=== PATIENT | female | born 1990 | race African-American/Black ===

== ENCOUNTER 2024-01-15 15:01 | Day surgery (SDC) | payer OTHER ==
[2024-01-15] MEDS: Acetaminophen 500 MG TAB PO SCH (16:35)
== END 2024-01-15 17:26 | disposition home or self-care (01) ==
LOC: CSHLD/OP 15:01
PROVIDERS: ATTEND Family Medicine
DX: O47.03 False labor before 37 completed weeks of gestation, third trimester (principal); O26.853 Spotting complicating pregnancy, third trimester; O99.213 Obesity complicating pregnancy, third trimester; O99.513 Diseases of the respiratory system complicating pregnancy, third trimester; J45.909 Unspecified asthma, uncomplicated; O99.283 Endocrine, nutritional and metabolic diseases complicating pregnancy, third trimester; E03.9 Hypothyroidism, unspecified; O34.211 Maternal care for low transverse scar from previous cesarean delivery; O99.013 Anemia complicating pregnancy, third trimester; Z3A.36 36 weeks gestation of pregnancy; Z79.890 Hormone replacement therapy; Z79.899 Other long term (current) drug therapy; Z88.0 Allergy status to penicillin

== ENCOUNTER 2024-02-04 06:55 | Inpatient (IN) | payer OTHER ==
[2024-02-04 08:25] LABS: Syphilis Antibody Nonreactive (Nonreactive); Syphilis Antibody Index 0.05 S/CO (<1.00 Non-Reactive)
[2024-02-04 08:26] LABS: Hemoglobin 10.7 g/dL (12.0-15.5); Mean Corpuscular HGB CONC 33.4 g/dL (32.0-36.0); Mean Corpuscular Hemoglobin 26.4 pg (27.0-33.0); Mean Corpuscular Volume 78.8 fL (81.6-98.3); Mean Platelet Volume 9.9 fL (7.4-10.4); Platelet Count 282 10x3/uL (150-450); RBC Distribution Width 13.4 % (11.5-14.5); Red Blood Cell (RBC) Count 4.06 10x6/uL (3.90-5.03); White Blood Cell (WBC) Count 6.4 10x3/uL (3.5-10.5)
[2024-02-04 08:30] LABS: HBsAg Index 0.22 S/CO (0-0.99); HIV (1/2) Antibody/Antigen NonReactive (NonReactive); HIV 1/2 INDEX 0.08 S/CO (<1.00); Hep B Surf Ag - L&D NonReactive S/CO (NonReactive)
[2024-02-04] MEDS ORDERED: Bicitra 30 ML UDCUP PO PRN (08:59)
[2024-02-04] MEDS ORDERED: hydrALAZINE 20 MG/ML VIAL SLOW IVP PRN ×2 (08:59→20:51)
[2024-02-04] MEDS ORDERED: Misoprostol 200 MCG TAB PR PRN (08:59)
[2024-02-04] MEDS ORDERED: Methylergonovine 0.2 MG/ML VIAL IM PRN (08:59)
[2024-02-04] MEDS ORDERED: Oxytocin 30 units/NS 500 ML 500 ML IV SCH (08:59)
[2024-02-04] MEDS ORDERED: Promethazine HCl 25 MG/ML VIAL IM PRN ×2 (08:59→10:42)
[2024-02-04] MEDS ORDERED: Carboprost 250 MCG/ML AMP IM PRN (08:59)
[2024-02-04] MEDS ORDERED: Tranexamic Acid 1,000 MG/10 ML VIAL IVP PRN (08:59)
[2024-02-04] MEDS ORDERED: Famotidine/PF 20 mg/2ml Vial SLOW IVP PRN (08:59)
[2024-02-04] MEDS ORDERED: Ondansetron PF 4 MG/2 ML Vial IVP PRN ×4 (08:59→20:51)
[2024-02-04] MEDS ORDERED: CEFAZOLIN 2 GM in Sodium Chloride 0.9% 100 ML IVPB SCH (08:59)
[2024-02-04] MEDS ORDERED: Diphenoxylate HCl/Atropine Tablet PO PRN (08:59)
[2024-02-04 09:36] VITALS: BMI 36.7
[2024-02-04] MEDS: metroNIDAZOLE 500 MG in Premix 1 BAG IVPB SCH (09:43)
[2024-02-04] MEDS: Lactated Ringer's 1,000 ML IV SCH (09:44)
[2024-02-04] MEDS ORDERED: Meperidine HCl/PF 25 MG (1 mL) VIAL SLOW IVP PRN (10:42)
[2024-02-04] MEDS ORDERED: diphenhydrAMINE 50 MG/ML VIAL IVP PRN (10:42)
[2024-02-04] MEDS ORDERED: Moisturizing Cream (Eucerin) 113 GM JAR TOP PRN (10:42)
[2024-02-04] MEDS ORDERED: Naloxone HCl 0.4 mg/ml Vial IV PRN (10:42)
[2024-02-04] MEDS ORDERED: Naloxone HCl 0.4 mg/ml Vial IVP PRN ×2 (10:42)
[2024-02-04] MEDS ORDERED: fentaNYL 50 mcg/mL 1 mL Vial SLOW IVP PRN (10:42)
[2024-02-04] MEDS ORDERED: Communication Order-Pharmacy FS SCH (10:45)
[2024-02-04] MEDS: Azithromycin 500 MG in Sodium Chloride 0.9% 250 ML 250 ML IVPB SCH (10:53)
[2024-02-04 10:56] LABS: Hematocrit 26.9 % (34.9-44.5); Hemoglobin 9.1 g/dL (12.0-15.5); Mean Corpuscular HGB CONC 33.8 g/dL (32.0-36.0); Mean Corpuscular Hemoglobin 27.2 pg (27.0-33.0); Mean Corpuscular Volume 80.3 fL (81.6-98.3); Mean Platelet Volume 10.2 fL (7.4-10.4); Platelet Count 224 10x3/uL (150-450); RBC Distribution Width 13.4 % (11.5-14.5); Red Blood Cell (RBC) Count 3.35 10x6/uL (3.90-5.03); White Blood Cell (WBC) Count 7.4 10x3/uL (3.5-10.5)
[2024-02-04 11:08] LABS: ALT (SGPT) 7 U/L (8-55); AST (SGOT) 15 U/L (5-34); Albumin 2.4 g/dL (3.5-5.0); Alkaline Phosphatase 87 U/L (40-110); Anion Gap 11 mmol/L (10-20); BUN (Urea Nitrogen) 6 mg/dL (7.0-18.7); Bilirubin, Total 0.3 mg/dL (0.2-1.2); Calc. Creatinine Clearance 152 mL/min (70-130); Calcium 8.3 mg/dL (7.8-10.44); Carbon Dioxide 21 mmol/L (22-29); Chloride 106 mmol/L (98-107); Estimated GFR 115; Globulin 2.9 g/dL (2.4-3.5); Glucose 94 mg/dL (70-105); Potassium 3.1 mmol/L (3.5-5.1); Protein, Total 5.3 g/dL (6.0-8.3); Sodium 135 mmol/L (136-145)
[2024-02-04 11:15] LABS: Prothrombin Time 10.8 sec (9.5-12.1)
[2024-02-04 11:16] LABS: D-Dimer Test 22.09 mcg/mL (0.19-0.50)
[2024-02-04] MEDS: Ketorolac Tromethamine 30 MG (1 mL) VIAL IVP SCH ×2 (14:56→21:53)
[2024-02-04 17:03] LABS: Hematocrit 25.8 % (34.9-44.5); Hemoglobin 8.9 g/dL (12.0-15.5); Mean Corpuscular HGB CONC 34.5 g/dL (32.0-36.0); Mean Corpuscular Hemoglobin 27.7 pg (27.0-33.0); Mean Corpuscular Volume 80.4 fL (81.6-98.3); Mean Platelet Volume 10.5 fL (7.4-10.4); Platelet Count 227 10x3/uL (150-450); RBC Distribution Width 13.2 % (11.5-14.5); Red Blood Cell (RBC) Count 3.21 10x6/uL (3.90-5.03)
[2024-02-04] MEDS ORDERED: Bisacodyl 10 MG SUPP PR PRN (20:51)
[2024-02-04] MEDS ORDERED: Lanolin Ointment 7 GM TUBE TOP PRN (20:51)
[2024-02-04] MEDS ORDERED: diphenhydrAMINE 25 MG CAP PO PRN (20:51)
[2024-02-04] MEDS: Sodium Chloride 0.9% 10 ML ONE (21:02)
[2024-02-04] MEDS: Dexmedetomidine 200 MCG/2 ML VIAL ONE (21:02)
[2024-02-04] MEDS: Morphine PF 10 MG/10 ML VIAL ONE (21:02)
[2024-02-04] MEDS: Oxytocin 10 UNITS/ML VIAL ONE ×2 (21:03→21:04)
[2024-02-04] MEDS: PHENYLEPHRINE-NS 100 MCG/ML 10 ML SYRINGE ONE (21:03)
[2024-02-04] MEDS: fentaNYL 50 mcg/mL 1 mL Vial ONE ×2 (21:03)
[2024-02-04] MEDS: CEFAZOLIN 1 GM VIAL ONE (21:03)
[2024-02-04] MEDS: Dexamethasone 4 mg/ml Vial ONE (21:04)
[2024-02-04] MEDS: Midazolam HCl 2 mg/2 ml Vial ONE (21:04)
[2024-02-04] MEDS: Ketorolac Tromethamine 30 MG (1 mL) VIAL ONE (21:04)
[2024-02-04] MEDS: Ondansetron PF 4 MG/2 ML Vial ONE (21:04)
[2024-02-04] MEDS: ePHEDrine Sulfate 50 MG/10 ML VIAL ONE (21:05)
[2024-02-04] MEDS: Tranexamic Acid 1,000 MG/10 ML VIAL ONE (21:05)
[2024-02-04] MEDS: Promethazine HCl 25 MG/ML VIAL ONE (21:05)
[2024-02-04] MEDS: Docusate 100 MG CAP PO SCH (21:25)
[2024-02-04] MEDS: CEFAZOLIN 2 GM in Sodium Chloride 0.9% 100 ML IVPB SCH (21:25)
[2024-02-04] MEDS: Ferrous Sulfate 325 MG TAB PO SCH (21:25)
[2024-02-05] MEDS: Simethicone Chewable 80 MG TAB PO PRN (00:20)
[2024-02-05 04:37] LABS: Hematocrit 23.2 % (34.9-44.5); Hemoglobin 7.8 g/dL (12.0-15.5); Mean Corpuscular HGB CONC 33.6 g/dL (32.0-36.0); Mean Corpuscular Hemoglobin 26.7 pg (27.0-33.0); Mean Corpuscular Volume 79.5 fL (81.6-98.3); Mean Platelet Volume 10.7 fL (7.4-10.4); Platelet Count 226 10x3/uL (150-450); RBC Distribution Width 13.3 % (11.5-14.5); Red Blood Cell (RBC) Count 2.92 10x6/uL (3.90-5.03); White Blood Cell (WBC) Count 14.9 10x3/uL (3.5-10.5)
[2024-02-05] MEDS: HYDROcodone/Acetaminophen 5/325 mg Tablet PO PRN ×2 (07:58→12:38)
[2024-02-05] MEDS: Prenatal Vitamin 1 TAB PO SCH (07:58)
[2024-02-05] MEDS: Ibuprofen 800 MG TAB PO SCH (21:27)
[2024-02-06] MEDS: Boostrix 0.5 ML (Tdap) VIAL (>/=7 yrs of age) IM ONE (07:18)
[2024-02-07 19:52] VITALS: BP 158/92; TEMP 98.3
== END 2024-02-07 20:30 | disposition home or self-care (01) | DRG 787 ==
LOC: CSHLD 06:55 → CSHPP 20:15
PROVIDERS: ADMIT Family Medicine; ATTEND Family Medicine
PROC: 10D00Z1 Extraction of Products of Conception, Low, Open Approach (ICD-10-PCS; principal; 2024-02-04)
PROC: 0W3R0ZZ Control Bleeding in Genitourinary Tract, Open Approach (ICD-10-PCS; 2024-02-04)
DX: O34.211 Maternal care for low transverse scar from previous cesarean delivery (principal); O72.1 Other immediate postpartum hemorrhage; Z79.899 Other long term (current) drug therapy; Z79.82 Long term (current) use of aspirin; Z37.0 Single live birth; Z3A.39 39 weeks gestation of pregnancy; Z88.0 Allergy status to penicillin; E03.9 Hypothyroidism, unspecified; J45.909 Unspecified asthma, uncomplicated; O99.284 Endocrine, nutritional and metabolic diseases complicating childbirth; O99.52 Diseases of the respiratory system complicating childbirth
CPT/HCPCS: 80053; 85027; 85049; 85300; 85362; 85384; 85610; 85730; 86780; 86850; 86900; 86901; 87340; 87389; J0456; J0690; J1100; J1885; J2250; J2274; J2405; J2550; J2590; J3010; J3490; J7050; J7120